=== PATIENT | male | born 1975 | race Caucasian/White ===

== ENCOUNTER 2020-03-27 14:22 | Emergency (ER) | payer OTHER, SELFPAY ==
[2020-03-27 14:37] VITALS: BP 149/82; PULSE 67; RESP 19; TEMP 36.8; O2SAT 98; BMI 40.6
[2020-03-27 14:50] VITALS: PULSE 73; O2SAT 95
--- NOTE | 2020-03-27 14:50 | DI.CT.S_ITS ---
PROCEDURE: CT KIDNEY URETER BLADDER (KUB) INDICATIONS: right flank pain TECHNIQUE: Noncontrast 5 mm thick sections acquired from the diaphragms to the symphysis. 5 mm thick coronal and sagittal reformats were then performed. For radiation dose reduction, the following was used: automated exposure control, adjustment of mA and/or kV according to patient size. COMPARISON: None. FINDINGS: Image quality: Excellent. Lung bases: Lung bases are clear. Heart size is normal. Urinary system: Both kidneys are normal in size. No kidney stones. No hydronephrosis or perinephric fat stranding. Both ureters appear non-dilated throughout their expected courses. Bladder wall thickness is normal; no calcified bladder stones. Other solid organs: Liver is normal in size. Gallbladder is unremarkable. Pancreas is normal in contours. Spleen is normal in size. No adrenal nodules. Peritoneum and bowel: Unenhanced bowel loops demonstrate normal wall thickness and caliber. No free fluid or air. Normal appendix. Scant colonic diverticulosis without acute inflammatory changes. Nodes and vessels: Several scattered mesenteric lymph nodes are visualized and are more notable for number rather than size and likely reactive in etiology. No retroperitoneal or mesenteric adenopathy by size criteria. Aorta and inferior vena cava are normal in caliber. Abdominal wall: No ventral hernias. Pelvis: No free pelvic fluid. No inguinal hernias or adenopathy. Bones: No suspicious bony lesions. No acute vertebral body compression fractures. Multilevel spondylitic changes throughout the imaged spine. IMPRESSION: 1. No evidence for urolithiasis or obstructive uropathy. 2. Normal appendix. 3. Minimal colonic diverticulosis without acute diverticulitis. Dictated by: Sky Lin M.D. on 03/27/2020 at 15:28 Approved by: Sky Lin M.D. on 03/27/2020 at 15:32
[2020-03-27] MEDS: KETOROLAC 60 MG/2 ML VIAL 15 MG IV (14:55)
[2020-03-27 15:00] VITALS: BP 125/70; PULSE 78; O2SAT 97
[2020-03-27 15:03] LABS: Add Manual Diff / Slide Review NO; Basophils Absolute Auto 0 /uL (0-100); Basophils Percent Auto 0.6 % (0-2); Eosinophils Absolute Auto 300 /uL (0-450); Eosinophils Percent Auto 3.6 % (2-4); Hematocrit 42.4 % (41-53); Hemoglobin 14.7 g/dL (13.5-17.5); Lymphocytes Absolute Auto 2100 /uL (1100-4500); Lymphocytes Percent Auto 24.5 % (25-40); Mean Corpuscular HGB Conc 34.7 % (30-36); Mean Corpuscular Hemoglobin 30.4 PG (26-34); Mean Corpuscular Volume 87.8 fL (80-100); Monocytes Absolute Auto 1000 /uL (0-900); Monocytes Percent Auto 11.6 % (3-14); Neutrophils Absolute Auto 5200 /uL (1500-7000); Neutrophils Percent Auto 59.7 % (50-75); Platelet Count 328 X10^3/uL (150-400); Red Blood Cell Count 4.83 X10^6/uL (4.5-5.9); Red Cell Distribution Width 12.6 % (11.6-14.8); White Blood Cell Count 8.8 X10^3/uL (4.5-11.0)
--- NOTE | 2020-03-27 15:03 | ED_ITS ---
HPI - Male Genitourinary <KRISTINA Belle - Last Filed: 03/28/20 00:49> General Chief complaint: Urogenital-Male Stated complaint: Possible Kidney Stone Time Seen by Provider: 03/27/20 14:42 Source: patient Mode of arrival: Ambulatory Limitations: no limitations History of Present Illness HPI Narrative: This is a 45-year-old male, nonsmoker, who has history of kidney stone that he passed on his own about 8-9 years ago presents to ED with his family with chief complain of right low back pain for 1 week. Patient reports this morning at 10:00 a.m. back pain became worse but without other associated symptoms such as nausea, vomiting, urinary symptoms, hematuria, fever. Patient reports pain increases with movements. He had taken Tylenol this morning for pain. He rates his pain as 8/10, constant, sharp. Patient denies rash on back, recent manipulations or surgery on his back, incontinence for stools or urine, or saddle anesthesia. Patient states he has been working on weeding last several days. Related Data Previous Rx's Medication Instructions Recorded cephalexin [Keflex] 0 PO BID #40 cap 01/30/17 cyclobenzaprine 10 mg PO BID PRN #10 tab 03/27/20 lidocaine 1 patch TOP Q24H PRN #30 each 03/27/20 Allergies Allergy/AdvReac Type Severity Reaction Status Date / Time Fish Containing Products Allergy Severe Anaphylaxis Verified 03/27/20 14:53 shellfish derived Allergy Severe Anaphylaxis Verified 03/27/20 14:53 Review of Systems <KRISTINA Belle - Last Filed: 03/28/20 00:49> Review of Systems Narrative: General: Denies fever, chills, fatigue, malaise, sweats. HEENT: Denies sinus pain, ear pain, sore throat, difficulty swallowing, dizziness. Respiratory: Denies dyspnea, cough, wheezing, hemoptysis, sputum. Cardiovascular: Denies chest pain, palpitations, orthopnea, edema. Gastrointestinal: Denies nausea, vomiting, abdominal pain, diarrhea, constipation, melena. : Denies dysuria, frequency, incontinence, hematuria, urinary retention. Musculoskeletal: See HPI Skin: Denies rash, skin lesions, or other. Neurologic: Denies weakness, headache, numbness, change in speech, confusion, seizures, incoordination. Psychiatric: No concerning psychosocial issues. 12-point review of systems is negative except for those stated above. Patient History <Damien HansenKRISTINA Merida - Last Filed: 03/28/20 00:49> Medical History Kidney stone (Acute) Social History Smoking Status: Never smoker Smoking Status: Never smoker alcohol intake frequency: holidays/special occasions only Substance Use Type: does not use Exam <Damien DennyKRISTINA Ma - Last Filed: 03/28/20 00:49> Narrative Exam Narrative: GEN: Alert, oriented x 3, well appearing and nourished, and in no acute distress. Head: Normal cephalic, atraumatic. No scalp or temporal tenderness, palpable m ass or rash. EYES: Pupils are equal, round, and reactive to light and accommodation. Extraocular muscles are intact bilaterally. There is no subconjunctival hemorrhage, exudate and sclera non-icteric. ENT: Bilateral auditory canals and tympanic membranes clear. Hearing grossly intact. Nose without bleeding, purulent discharge or deviation. Facial sinuses nontender to palpate. Mucous membrane moist, no mucosal lesion. Throat without erythema, tonsillar hypertrophy or exudate. Uvula in midline, airway patent. Neck: Trachea in midline. No JVD, non-tender without lymphadenopathy. No masses or thyroid megaly. Supple, non-tender and no meningeal signs. CARDIAC: Normal regular rate and rhythm without murmurs, gallops, or rubs. No chest wall tenderness. No peripheral edema, cyanosis or pallor. Capillary refill is less than 2 seconds. RESPIRATORY: Lungs are clear to auscultate bilaterally. No cough, wheezes, rales, or rhonchi. No stridor, respiratory distress, increase work of breathing, or accessary muscle used. ABD: Abdomen soft, nontender and non-distended. No guarding or rebound tenderness to palpate. Bowel sounds are normal in all 4 quadrants. There is no palpable masses or organomegaly. EXT: Full painless ROM of all extremities with no loss of sensation, strength, effusion or edema. SKIN: Warm, dry, normal color for patient. No erythema, lesions or rash over visible areas. BACK: Right low back pain to palpate. No mid spine tenderness. No rashes appreciated on back. NEUROLOGICAL: Alert and oriented to place, time and person. Sensation and motor function intact bilaterally. No facial droops, dysphasia. PSYCHIATRIC: Good judgement and reason, without hallucinations, abnormal affect or abnormal behaviors during the examination. Patient is not suicidal. Initial Vital Signs Initial Vital Signs: Vital Signs Temperature 98.2 F 03/27/20 14:37 Pulse Rate 67 03/27/20 14:37 Respiratory Rate 03/27/20 14:37 Blood Pressure 149/82 H 03/27/20 14:37 Pulse Oximetry 98 03/27/20 14:37 <Leatha Boyer MD - Last Filed: 03/28/20 07:23> Initial Vital Signs Initial Vital Signs: Vital Signs Temperature 98.2 F 03/27/20 14:37 Pulse Rate 67 03/27/20 14:37 Respiratory Rate 03/27/20 14:37 Blood Pressure 149/82 H 03/27/20 14:37 Pulse Oximetry 98 03/27/20 14:37 Scores <KRSITINA Belle - Last Filed: 03/28/20 00:49> GCS Rhonda coma scale eye opening: Spontaneous Rhonda coma scale verbal response: Orientated [place] coma scale motor response: Obey commands [place] coma scale total score: 15 Course <KRISTINA Belle - Last Filed: 03/28/20 00:49> Orders Ordered: Discontinued Medications Acetaminophen (Tylenol) 650 mg PO NOW ONE Stop: 03/27/20 15:48 Last Admin: 03/27/20 15:59 Dose: 650 mg Documented by: DELMER Cyclobenzaprine HCl (Flexeril) 10 mg PO NOW ONE Stop: 03/27/20 15:48 Last Admin: 03/27/20 15:59 Dose: 10 mg Documented by: DELMER Ketorolac Tromethamine (Toradol) 15 mg IV NOW ONE Stop: 03/27/20 14:49 Last Admin: 03/27/20 14:55 Dose: 15 mg Documented by: DANNI Lidocaine (Lidoderm) 1 each TOP NOW ONE Stop: 03/27/20 15:48 Last Admin: 03/27/20 15:59 Dose: 1 each Documented by: MMINOR Vital Signs Vital signs: Vital Signs - 8 hr 03/27/20 14:37 Temperature 98.2 F Pulse Rate 67 Respiratory Rate 19 Blood Pressure 149/82 H Pulse Oximetry 98 <Leatha Boyer MD - Last Filed: 03/28/20 07:23> Orders Ordered: Discontinued Medications Acetaminophen (Tylenol) 650 mg PO NOW ONE Stop: 03/27/20 15:48 Last Admin: 03/27/20 15:59 Dose: 650 mg Documented by: MMSALINASR Cyclobenzaprine HCl (Flexeril) 10 mg PO NOW ONE Stop: 03/27/20 15:48 Last Admin: 03/27/20 15:59 Dose: 10 mg Documented by: ROSAR Ketorolac Tromethamine (Toradol) 15 mg IV NOW ONE Stop: 03/27/20 14:49 Last Admin: 03/27/20 14:55 Dose: 15 mg Documented by: DANNI Lidocaine (Lidoderm) 1 each TOP NOW ONE Stop: 03/27/20 15:48 Last Admin: 03/27/20 15:59 Dose: 1 each Documented by: MMINOR Vital Signs Vital signs: Vital Signs - 8 hr 03/27/20 14:37 Temperature 98.2 F Pulse Rate 67 Respiratory Rate 19 Blood Pressure 149/82 H Pulse Oximetry 98 MDM - Male Genitourinary <KRISTINA Belle - Last Filed: 03/28/20 00:49> Differential Diagnosis Differential diagnosis: Likely other (Renal stone, infection, back strain, pylonephritis) Medical Records Attestation: I reviewed the patient's medical records. Lab Data Attestation: I reviewed the patient's lab results. Result diagrams: 03/27/20 14:50 03/27/20 14:50 Labs: Lab Results 03/27/20 03/27/20 Range/Units 14:50 14:50 WBC 8.8 (4.5-11.0) X10^3/uL RBC 4.83 (4.5-5.9) X10^6/uL Hgb 14.7 (13.5-17.5) g/dL Hct 42.4 (41-53) % MCV 87.8 (80-100) fL MCH 30.4 (26-34) PG MCHC 34.7 (30-36) % RDW 12.6 (11.6-14.8) % Plt Count 328 (150-400) X10^3/uL Neut % (Auto) 59.7 (50-75) % Lymph % (Auto) 24.5 L (25-40) % [place] % (Auto) 11.6 (3-14) % Eos % (Auto) 3.6 (2-4) % Baso % (Auto) 0.6 (0-2) % Neut # (Auto) 5200 (9517-9933) /uL Lymph # (Auto) 2100 (4110-9348) /uL [place] # (Auto) 1000 H (0-900) /uL Eos # (Auto) 300 (0-450) /uL Baso # (Auto) 0 (0-100) /uL Sodium 138 (137-145) mmol/L Potassium 3.9 (3.4-5.1) mmol/L Chloride 100 (98-107) mmol/L Carbon Dioxide 29 (22-32) mmol/L BUN 10 (9-20) mg/dL Creatinine 0.69 (0.66-1.25) mg/dL Estimated GFR > 60.0 (>60) mL/min BUN/Creatinine Ratio 14.5 (6-22) Glucose 90 (70-100) mg/dL Calcium 9.8 (8.4-10.2) mg/dL Total Bilirubin 0.7 (0.2-1.3) mg/dL AST 37 (17-59) IU/L ALT 44 (<50) IU/L Alkaline Phosphatase 89 (38-126) U/L Total Protein 8.2 (6.3-8.2) g/dL Albumin 4.7 (3.5-5.0) g/dL Globulin 3.5 (1.7-4.1) g/dL Albumin/Globulin Ratio 1.3 (1.0-2.8) Urine Dip Bedside Urine Glucose Negative Bedside Urine Bilirubin - Negative Bedside Urine Ketone - Negative Urine Specific [place] 1.010 Bedside Urine Occult Blood - Negative Bedside Urine pH 6.0 Bedside Urine Protein - Negative Bedside Urine Urobilinogen - Negative Bedside Urine Nitrite - Negative Bedside Urine Leukocytes - Negative Esterase Imaging Data CT-KUB: Radiologist's Impression: [address] [address] [address] Scan Report Signed Patient: Gabriel Brownlee [facility]#: [id number] : 1975Acct:[id number] Age/Sex: 45 / MDate of Service: 03/27/20 Loc: ED Accession Number: [id number] Procedure: CT kidney ureter bladder (KUB) Ordering Provider: Damien Rodgers PROCEDURE: CT KIDNEY URETER BLADDER (KUB) INDICATIONS: right flank pain TECHNIQUE: Noncontrast 5 mm thick sections acquired from the diaphragms to the symphysis. 5 mm thick coronal and sagittal reformats were then performed. For radiation dose reduction, the following was used: automated exposure control, adjustment of mA and/or kV according to patient size. COMPARISON: None. FINDINGS: Image quality: Excellent. Lung bases: Lung bases are clear. Heart size is normal. Urinary system: Both kidneys are normal in size. No kidney stones. No hydronephrosis or perinephric fat stranding. Both ureters appear non-dilated throughout their expected courses. Bladder wall thickness is normal; no calcified bladder stones. Other solid organs: Liver is normal in size. Gallbladder is unremarkable. [place] cre[place] is normal in contours. Spleen is normal in size. No adrenal nodules. Peritoneum and bowel: Unenhanced bowel loops demonstrate normal wall thickness and caliber. No free fluid or air. Normal appendix. Scant colonic diverticulosis without acute inflammatory changes. Nodes and vessels: Several scattered mesenteric lymph nodes are visualized and are more notable for number rather than size and likely reactive in etiology. No retroperitoneal or mesenteric adenopathy by size criteria. Aorta and inferior vena cava are normal in caliber. Abdominal wall: No ventral hernias. Pelvis: No free pelvic fluid. No inguinal hernias or adenopathy. Bones: No suspicious bony lesions. No acute vertebral body compression fractures. Multilevel spondylitic changes throughout the imaged spine. IMPRESSION: 1. No evidence for urolithiasis or obstructive uropathy. 2. Normal appendix. 3. Minimal colonic diverticulosis without acute diverticulitis. Dictated by: Sky Lin M.D. on 03/27/2020 at 15:28 Approved by: Sky Lin M.D. on 03/27/2020 at 15:32 MDM Narrative Medical decision making narrative: This is a 45-year-old gentleman who presents to ED with right flank pain for last 10 days which became worse since this morning. Patient does not have other urinary symptoms or associated nausea or vomiting, fever or chills. Patient reports he has history of kidney stone which he passed and is concerned for this. History and physical exam is a to consistent with kidney stone pain. Urine is negative for blood, nitrites or leukoesterase. Stable H&H. No leukocytosis. Unremarkable chemistry test including kidney function. CT KUB was ordered and obtained for unchanged location of back pain whether patient has large kidney stone that he can't pass or hydronephrosis. Test shows normal kidney in size without hydronephrosis or perinephric fat stranding. Both ureter without dilation and normal bladder wall thickness without calcified stones in renal or bladder. No indications for appendicitis. Incidental finding of colonic diverticulosis without acute inflammatory changes. Given patient's physical exam, KUB CT, urine test, patient's right lower back pain is likely from muscle strain after weeding. Patient's pain was managed with IV Toradol, flexeril, Lidocaine patch and tylenol and discharged to home with Flexeril and lidocaine patch. Advised continue to use Tylenol and or Motrin as needed. Return precautions were discussed with patient and patient verbalized understanding and agreement with the treatment plan. <Leatha Boyer MD - Last Filed: 03/28/20 07:23> Lab Data Labs: Lab Results 03/27/20 03/27/20 Range/Units 14:50 14:50 WBC 8.8 (4.5-11.0) X10^3/uL RBC 4.83 (4.5-5.9) X10^6/uL Hgb 14.7 (13.5-17.5) g/dL Hct 42.4 (41-53) % MCV 87.8 (80-100) fL MCH 30.4 (26-34) PG MCHC 34.7 (30-36) % RDW 12.6 (11.6-14.8) % Plt Count 328 (150-400) X10^3/uL Neut % (Auto) 59.7 (50-75) % Lymph % (Auto) 24.5 L (25-40) % [place] % (Auto) 11.6 (3-14) % Eos % (Auto) 3.6 (2-4) % Baso % (Auto) 0.6 (0-2) % Neut # (Auto) 5200 (7533-5923) /uL Lymph # (Auto) 2100 (0435-5636) /uL [place] # (Auto) 1000 H (0-900) /uL Eos # (Auto) 300 (0-450) /uL Baso # (Auto) 0 (0-100) /uL Sodium 138 (137-145) mmol/L Potassium 3.9 (3.4-5.1) mmol/L Chloride 100 (98-107) mmol/L Carbon Dioxide 29 (22-32) mmol/L BUN 10 (9-20) mg/dL Creatinine 0.69 (0.66-1.25) mg/dL Estimated GFR > 60.0 (>60) mL/min BUN/Creatinine Ratio 14.5 (6-22) Glucose 90 (70-100) mg/dL Calcium 9.8 (8.4-10.2) mg/dL Total Bilirubin 0.7 (0.2-1.3) mg/dL AST 37 (17-59) IU/L ALT 44 (<50) IU/L Alkaline Phosphatase 89 (38-126) U/L Total Protein 8.2 (6.3-8.2) g/dL Albumin 4.7 (3.5-5.0) g/dL Globulin 3.5 (1.7-4.1) g/dL Albumin/Globulin Ratio 1.3 (1.0-2.8) Urine Dip Bedside Urine Glucose Negative Bedside Urine Bilirubin - Negative Bedside Urine Ketone - Negative Urine Specific [place] 1.010 Bedside Urine Occult Blood - Negative Bedside Urine pH 6.0 Bedside Urine Protein - Negative Bedside Urine Urobilinogen - Negative Bedside Urine Nitrite - Negative Bedside Urine Leukocytes - Negative Esterase Discharge Plan Departure Patient Disposition: Home Clinical Impression: Low back pain Qualifiers: Chronicity: acute Back pain laterality: right Sciatica presence: without sciatica Qualified Code(s): M54.5 - Low back pain Discharge Date/Time: 03/27/20 16:30 Instructions: DI for Low Back Pain Activity Restrictions/Additional Instructions: You have been diagnosed with [right low back pain. CT test KUB was negative for kidney stone, hydronephrosis or infection. Urine test does not appears to be having on infection. CBC and chemistry tests are unremarkable and assuring.]. What to do: *Take your medications as directed. Please take [id number] Tylenol and or Motrin as needed for discomfort. Tylenol 650-1000 mg up to 3 to 4 times a day as needed for pain. Ibuprofen 400-600 mg up to 3 times a day as needed for pain with food. Flexeril for muscle relaxant. It can cause drowsiness so please take precautions not driving, drinking alcohol, or operating heavy equipments. Lidocaine applied on affected site for 12 hours and off for 12 hours as needed for pain. This medication has been transmitted to [facility]. *Follow up with your primary care provider in 2-3 days, call for an appointment. Let them know you were seen in the ED and that we asked you to be seen in follow up. *Return to ED if you have any new, worsening, or concerning symptoms, such as [worsening pain, weakness/tingling/numbness in lower extremities or groin, incontinence, fever, rash, chest pain, breathing difficulty, unable to tolerate fluids or any acute concerns]. Prescriptions: New cyclobenzaprine 10 mg tablet 10 mg PO BID PRN (Reason: muscle spasm) Qty: 10 RF: 0 lidocaine 5 % adhesive patch,medicated 1 patch TOP Q24H PRN (Reason: back pain) Qty: 30 RF: 0 No Action cephalexin [Keflex] 500 MG capsule 0 PO BID Qty: 40 RF: 0 Referrals: George Kaur MD [Primary Care Provider] - <Leatha Boyer MD - Last Filed: 03/28/20 07:23> [facility] Attending Abdoulature Attestation: I was immediately available in the department for consultation throughout this patient's visit. I agree with documentation as above. Leatha Boyer MD
[2020-03-27 15:15] LABS: Alanine Aminotransferase 44 IU/L (<50); Albumin 4.7 g/dL (3.5-5.0); Albumin Globulin Ratio 1.3 (1.0-2.8); Alkaline Phosphatase 89 U/L (38-126); Aspartate Aminotransferase 37 IU/L (17-59); BUN Creatinine Ratio 14.5 (6-22); Bilirubin Total 0.7 mg/dL (0.2-1.3); Blood Urea Nitrogen 10 mg/dL (9-20); Calcium 9.8 mg/dL (8.4-10.2); Carbon Dioxide 29 mmol/L (22-32); Chloride 100 mmol/L (98-107); Estimated Glomerular Filt Rate > 60.0 mL/min (>60); Globulin 3.5 g/dL (1.7-4.1); Glucose 90 mg/dL (70-100); HEMOLYSIS 18 (0-50); Potassium 3.9 mmol/L (3.4-5.1); Sodium 138 mmol/L (137-145); Total Protein 8.2 g/dL (6.3-8.2)
[2020-03-27 15:30] VITALS: BP 130/77; PULSE 61; O2SAT 96
[2020-03-27] MEDS: ACETAMINOPHEN 325 MG TABLET 650 MG PO (15:59)
[2020-03-27] MEDS: LIDOCAINE PATCH 1 EACH ADH..PATCH TOP (15:59)
[2020-03-27] MEDS: CYCLOBENZAPRINE 10 MG TABLET PO (15:59)
[2020-03-27 16:00] VITALS: PULSE 62; O2SAT 97
[2020-03-27 16:01] VITALS: BP 126/58; PULSE 65; O2SAT 98
== END 2020-03-27 16:30 | disposition home or self-care (01) ==
PROVIDERS: Emergency Provider Nurse Practitioner Family; Family Provider Family Medicine; PCP Family Medicine
DX: M54.5 Low back pain (principal); Z87.442 Personal history of urinary calculi
CPT/HCPCS: 36415; 74176; 80053; 81003; 85025; 96374; 99284; J1885